=== PATIENT | female | born 1940 | race Caucasian/White ===

== ENCOUNTER → 2016-07-23 | Outpatient (CLI) | payer OTHER, MEDICAID ==
[~2016-07-23] MED LIST: ALLO100T PO; ASPI81TA27 PO; CHOL200010 PO; COLC1TAB3 PO; FER325T PO; GABA-494 PO; GLIM2TAB33 PO; HYDR-2601 PO; NIFE90TA30 PO; PERCOT PO; PIOG45TA6 PO; SIMV-8 PO; TEMA15CA PO; ZOLP10TA6 PO
[2016-07-23 11:22] LABS: Basophils # (auto) 0 uL; Basophils % (auto) 0.6 % (0.0-2.0); Eosinophils # (auto) 0 uL; Eosinophils % (auto) 0.1 % (0.0-7.0); Hematocrit 31.8 % (36.0-46.0); Hemoglobin 10.1 g/dL (12.2-16.2); Lymphocytes # (auto) 0.9 uL; Lymphocytes % (auto) 13.3 % (10.0-50.0); Mean Corpuscular Hemoglobin 28.5 pg (28.0-32.0); Mean Corpuscular Hgb Conc. 31.6 g/dL (32.0-36.0); Mean Corpuscular Volume 90.3 fL (80.0-100.0); Mean Platelet Volume 7.3 fL (7.4-10.4); Monocytes # (auto) 0.4 uL; Monocytes % (auto) 6.3 % (0.0-12.0); Neutrophils # (auto) 5.4 uL; Neutrophils % (auto) 79.7 % (37.0-80.0); Platelet Count (auto) 293 10^3/uL (140-450); Red Cell Distribution Width 16.5 % (11.6-16.0); White Blood Cell 6.7 10^3/uL (4.4-10.8)
[2016-07-23 11:25] LABS: Urine Bilirubin Negative (Negative); Urine Blood Negative /uL (Negative); Urine Color Yellow (Yellow); Urine Glucose Normal (Normal); Urine Ketone Negative (Negative); Urine Nitrite Negative (Negative); Urine RBC <1 /hpf (0 - 4); Urine Squamous Epithelial Cell FEW /hpf (<5); Urine Urobilinogen Normal (Negative); Urine pH 5.5 (5.0-8.0)
[2016-07-23 11:31] LABS: Albumin 3.2 g/dL (3.4-5.0); BUN/Creatinine Ratio 16.6; Calcium 8.8 mg/dL (8.5-10.1); Phosphorus 3.9 mg/dL (2.6-4.90); Potassium 4.3 mmol/L (3.5-5.1); Uric Acid 4.3 mg/dL (2.6-6.0)
[2016-07-23 11:34] LABS: Urine Protein/Creatinine Ratio 0.21
== END | disposition home or self-care (01) ==
LOC: LAB 10:42
PROVIDERS: ATTEND Internal Medicine Nephrology
DX: E55.9 Vitamin D deficiency, unspecified (principal); E13.22 Other specified diabetes mellitus with diabetic chronic kidney disease; R80.9 Proteinuria, unspecified; N18.4 Chronic kidney disease, stage 4 (severe); D63.1 Anemia in chronic kidney disease; E21.3 Hyperparathyroidism, unspecified; E78.5 Hyperlipidemia, unspecified; M10.9 Gout, unspecified
CPT/HCPCS: 36415; 80069; 81001; 82306; 82570; 83036; 83970; 84156; 84550; 85025

== ENCOUNTER → 2016-10-28 | Outpatient (CLI) | payer OTHER, MEDICAID ==
[2016-10-28 11:52] LABS: Basophils # (auto) 0 uL; Basophils % (auto) 0.3 % (0.0-2.0); Eosinophils # (auto) 0 uL; Eosinophils % (auto) 0.1 % (0.0-7.0); Hematocrit 31.2 % (36.0-46.0); Lymphocytes % (auto) 14.9 % (10.0-50.0); Mean Corpuscular Hemoglobin 28.5 pg (28.0-32.0); Mean Corpuscular Hgb Conc. 32.2 g/dL (32.0-36.0); Mean Corpuscular Volume 88.5 fL (80.0-100.0); Mean Platelet Volume 7.1 fL (7.4-10.4); Monocytes # (auto) 0.5 uL; Monocytes % (auto) 6.9 % (0.0-12.0); Neutrophils # (auto) 5.1 uL; Neutrophils % (auto) 77.8 % (37.0-80.0); Platelet Count (auto) 286 10^3/uL (140-450); Red Cell Distribution Width 17.7 % (11.6-16.0); White Blood Cell 6.6 10^3/uL (4.4-10.8)
[2016-10-28 14:00] LABS: BUN/Creatinine Ratio 16.1; Bilirubin, Total 0.5 mg/dL (0.2-1.0); Calcium 8.3 mg/dL (8.5-10.1); Potassium 4.4 mmol/L (3.5-5.1); Total Protein 6.9 g/dL (6.4-8.2); Uric Acid 4.4 mg/dL (2.6-6.0)
== END | disposition home or self-care (01) ==
LOC: LAB 11:12
DX: M06.9 Rheumatoid arthritis, unspecified (principal); M25.50 Pain in unspecified joint; D64.9 Anemia, unspecified; I10 Essential (primary) hypertension
CPT/HCPCS: 36415; 80053; 84550; 85025; 85652; 86141

== ENCOUNTER → 2017-01-21 | Outpatient (CLI) | payer OTHER, MEDICAID ==
[2017-01-21 12:08] LABS: Urine RBC None Seen /hpf (0 - 4)
[2017-01-21 12:14] LABS: Basophils # (auto) 0 uL; Basophils % (auto) 0.3 % (0.0-2.0); CONDITION Y; Eosinophils # (auto) 0 uL; Eosinophils % (auto) 0.1 % (0.0-7.0); Hematocrit 29.6 % (36.0-46.0); Hemoglobin 9.6 g/dL (12.2-16.2); Lymphocytes # (auto) 0.8 uL; Lymphocytes % (auto) 14.1 % (10.0-50.0); Mean Corpuscular Hemoglobin 28.8 pg (28.0-32.0); Mean Corpuscular Hgb Conc. 32.6 g/dL (32.0-36.0); Mean Corpuscular Volume 88.5 fL (80.0-100.0); Mean Platelet Volume 7.1 fL (7.4-10.4); Monocytes # (auto) 0.4 uL; Monocytes % (auto) 7.1 % (0.0-12.0); Neutrophils # (auto) 4.5 uL; Neutrophils % (auto) 78.4 % (37.0-80.0); Platelet Count (auto) 292 10^3/uL (140-450); Red Cell Distribution Width 18.8 % (11.6-16.0); White Blood Cell 5.8 10^3/uL (4.4-10.8)
[2017-01-21 12:37] LABS: Urine Protein/Creatinine Ratio 0.31
[2017-01-21 12:44] LABS: BUN/Creatinine Ratio 14.5; Calcium 8.2 mg/dL (8.5-10.1); Phosphorus 4.4 mg/dL (2.5-4.90); Potassium 4.4 mmol/L (3.5-5.1); Uric Acid 4.8 mg/dL (2.6-6.0)
[2017-01-21 13:24] LABS: Urine Bilirubin Negative (Negative); Urine Blood Negative /uL (Negative); Urine Color Yellow (Yellow); Urine Glucose Normal (Normal); Urine Ketone Negative (Negative); Urine Nitrite Negative (Negative); Urine Squamous Epithelial Cell FEW /hpf (<5); Urine Urobilinogen Normal (Negative); Urine pH 6.5 (5.0-8.0)
== END | disposition home or self-care (01) ==
LOC: LAB 11:04
PROVIDERS: ATTEND Internal Medicine Nephrology
DX: E55.9 Vitamin D deficiency, unspecified (principal); R80.9 Proteinuria, unspecified
CPT/HCPCS: 36415; 80069; 81001; 82306; 82570; 83036; 83970; 84156; 84550; 85025

== ENCOUNTER → 2017-04-21 | Outpatient (CLI) | payer OTHER, MEDICAID ==
[2017-04-21 11:24] LABS: Basophils # (auto) 0 uL; Basophils % (auto) 0.4 % (0.0-2.0); Eosinophils # (auto) 0 uL; Eosinophils % (auto) 0.1 % (0.0-7.0); Hematocrit 33.5 % (36.0-46.0); Lymphocytes # (auto) 0.9 uL; Lymphocytes % (auto) 15.6 % (10.0-50.0); Mean Corpuscular Hemoglobin 29.4 pg (28.0-32.0); Mean Corpuscular Hgb Conc. 32.7 g/dL (32.0-36.0); Mean Corpuscular Volume 89.7 fL (80.0-100.0); Mean Platelet Volume 6.9 fL (6.9-10.8); Monocytes # (auto) 0.5 uL; Monocytes % (auto) 8.2 % (0.0-12.0); Neutrophils # (auto) 4.2 uL; Neutrophils % (auto) 75.7 % (37.0-80.0); Platelet Count (auto) 256 10^3/uL (140-450); White Blood Cell 5.6 10^3/uL (4.4-10.8)
[2017-04-21 11:41] LABS: Urine Bilirubin Negative (Negative); Urine Blood Negative /uL (Negative); Urine Color Yellow (Yellow); Urine Glucose Normal (Normal); Urine Ketone Negative (Negative); Urine Nitrite Negative (Negative); Urine Urobilinogen Normal (Negative); Urine pH 5.5 (5.0-8.0)
[2017-04-21 12:09] LABS: Albumin 3.1 g/dL (3.4-5.0); BUN/Creatinine Ratio 16.7; Calcium 8.5 mg/dL (8.5-10.1); Phosphorus 3.8 mg/dL (2.5-4.90); Potassium 4.3 mmol/L (3.5-5.1); Uric Acid 4.7 mg/dL (2.6-6.0)
[2017-04-21 13:00] LABS: Urine Protein/Creatinine Ratio 0.29
== END | disposition home or self-care (01) ==
LOC: LAB 10:38
PROVIDERS: ATTEND Internal Medicine Nephrology
DX: M10.9 Gout, unspecified (principal); R80.9 Proteinuria, unspecified; E21.3 Hyperparathyroidism, unspecified; I12.9 Hypertensive chronic kidney disease with stage 1 through stage 4 chronic kidney disease, or unspecified chronic kidney disease; N18.3 Chronic kidney disease, stage 3 (moderate); D63.1 Anemia in chronic kidney disease
CPT/HCPCS: 36415; 80069; 81003; 82570; 83970; 84156; 84550; 85025

== ENCOUNTER 2017-06-05 11:42 | Emergency (ER) | payer OTHER, MEDICAID ==
[~2017-06-05] VITALS: Ht 165.1 cm; Wt 129.7 kg
[~2017-06-05 11:42] MED LIST changes: +FURO20TA3 PO
[2017-06-05 11:57] VITALS: BP 135/86
== END 2017-06-05 12:38 | disposition left against medical advice (07) ==
LOC: ER 11:42
DX: I10 Essential (primary) hypertension (principal); Z53.21 Procedure and treatment not carried out due to patient leaving prior to being seen by health care provider; Z76.0 Encounter for issue of repeat prescription

== ENCOUNTER → 2017-08-10 | Outpatient (CLI) | payer OTHER, MEDICAID ==
[~2017-08-10] MED LIST changes: +ALL100T PO; +APIX2.5T PO; +DIGO0.1220 PO; -GABA-494 PO; +GABA100C9 PO; -PIOG45TA6 PO; +PIOG45TA8 PO
[2017-08-10 11:32] LABS: Basophils # (auto) 0 uL; Basophils % (auto) 0.3 % (0.0-2.0); Eosinophils # (auto) 0 uL; Hematocrit 29.9 % (36.0-46.0); Hemoglobin 9.8 g/dL (12.2-16.2); Lymphocytes # (auto) 0.6 uL; Lymphocytes % (auto) 8.4 % (10.0-50.0); Mean Corpuscular Hemoglobin 29.6 pg (28.0-32.0); Mean Corpuscular Hgb Conc. 32.6 g/dL (32.0-36.0); Mean Corpuscular Volume 90.6 fL (80.0-100.0); Monocytes # (auto) 0.5 uL; Monocytes % (auto) 7.5 % (0.0-12.0); Neutrophils # (auto) 5.8 uL; Neutrophils % (auto) 83.8 % (37.0-80.0); Nucleated Red Blood Cells % 0.1 %; Platelet Count (auto) 218 10^3/uL (140-450); Red Cell Distribution Width 17.7 % (11.8-14.3); White Blood Cell 6.9 10^3/uL (4.4-10.8)
[2017-08-10 11:33] LABS: Urine Bacteria NONE SEEN /hpf (None Seen); Urine Blood Negative /uL (Negative); Urine WBC <1 /hpf (0 - 5)
[2017-08-10 12:00] LABS: BUN/Creatinine Ratio 16.3; Calcium 7.9 mg/dL (8.5-10.1); Phosphorus 3.8 mg/dL (2.5-4.90); Potassium 3.7 mmol/L (3.5-5.1); Uric Acid 5.3 mg/dL (2.6-6.0)
[2017-08-10 12:03] LABS: Protein, Urine 29.3 mg/dL (0.0-11.9)
== END | disposition home or self-care (01) ==
LOC: LAB 11:07
PROVIDERS: ATTEND Internal Medicine Nephrology
DX: N18.4 Chronic kidney disease, stage 4 (severe) (principal); D63.1 Anemia in chronic kidney disease; E21.3 Hyperparathyroidism, unspecified; E78.5 Hyperlipidemia, unspecified; E55.9 Vitamin D deficiency, unspecified; M10.9 Gout, unspecified; R80.9 Proteinuria, unspecified
CPT/HCPCS: 36415; 80061; 80069; 81001; 82306; 82570; 84156; 84550; 85025

== ENCOUNTER 2017-08-16 10:10 | Inpatient (IN) | payer OTHER, MEDICAID ==
[~2017-08-16] VITALS: Ht 165.1 cm; Wt 133.1 kg
[~2017-08-16 10:10] MED LIST changes: -ALL100T PO; -APIX2.5T PO; -DIGO0.1220 PO
[2017-08-16 10:53] LABS: Basophils # (auto) 0 uL; Basophils % (auto) 0.3 % (0.0-2.0); Eosinophils # (auto) 0 uL; Hematocrit 25.9 % (36.0-46.0); Hemoglobin 8.4 g/dL (12.2-16.2); Lymphocytes # (auto) 0.4 uL; Mean Corpuscular Hgb Conc. 32.5 g/dL (32.0-36.0); Monocytes # (auto) 0.5 uL; Neutrophils # (auto) 7.5 uL; Neutrophils % (auto) 89.1 % (37.0-80.0); White Blood Cell 8.4 10^3/uL (4.4-10.8)
[2017-08-16 10:55] LABS: Lymphocytes % (auto) 4.4 % (10.0-50.0); Mean Corpuscular Hemoglobin 29.4 pg (28.0-32.0); Mean Corpuscular Volume 90.2 fL (80.0-100.0); Monocytes % (auto) 6.2 % (0.0-12.0); Platelet Count (auto) 189 10^3/uL (140-450); Red Blood Cells 2.88 10^6/uL (4.0-5.20); Red Cell Distribution Width 16.9 % (11.8-14.3)
[2017-08-16] MEDS ORDERED: diphenhdrAMINE HCL 50 MG/1 ML VL IV ONE (11:30)
[2017-08-16] MEDS ORDERED: methylPREDNISolone SOD SUCC 125 MG/2 ML VL IV ONE (11:30)
[2017-08-16 11:31] LABS: Alanine Aminotransferase 13 U/L (13-56); Albumin 2.7 g/dL (3.4-5.0); Alkaline Phosphatase 103 U/L (45-117); Anion Gap 11 (5-15); Aspartate Aminotransferase 24 U/L (15-37); Bilirubin, Total 0.7 mg/dL (0.2-1.0); Blood Urea Nitrogen 53 mg/dL (7-18); Calcium 7.3 mg/dL (8.5-10.1); Carbon Dioxide 24 mmol/L (21-32); Chloride 102 mmol/L (98-107); GFR African American 24 mL/min; GFR Non-African American 20 mL/min; Glucose 97 mg/dL (74-106); Magnesium 2.1 mg/dL (1.6-2.6); Potassium 3.7 mmol/L (3.5-5.1); Sodium 137 mmol/L (136-145); Total Protein 6.6 g/dL (6.4-8.2)
[2017-08-16] MEDS ORDERED: ALBUTEROL SULF 2.5 MG/0.5ML(0.5%) NEB SOLN NEB ONE (12:15)
[2017-08-16] MEDS ORDERED: SODIUM CHLORIDE 0.9% 500 ML IV ONE (12:15)
[2017-08-16 13:35] LABS: Urine Bacteria NONE SEEN /hpf (None Seen); Urine Blood Negative /uL (Negative); Urine Hyaline Cast FEW /lpf (0 - 2); Urine Specific Gravity 1.019 (1.001-1.035); Urine WBC 1 /hpf (0 - 5)
[2017-08-16] MEDS ORDERED: MORPHINE SULFATE 4 MG/ML SYR/VIAL IV PRN ×2 (15:30)
[2017-08-16] MEDS ORDERED: cloNIDine HCL 0.1 MG TAB PO PRN (15:30)
[2017-08-16] MEDS ORDERED: SULFAMETHOX W/TRIMETH(800/160MG) DS TAB PO ONE (15:30)
[2017-08-16] MEDS ORDERED: ONDANSETRON HCL 4 MG/2 ML VIAL IV PRN (15:30)
[2017-08-16] MEDS ORDERED: DOCUSATE SOD 100 MG CAP PO PRN (15:30)
[2017-08-16] MEDS ORDERED: NITROGLYCERIN 0.4 MG SL TAB SL PRN (15:30)
[2017-08-16] MEDS ORDERED: ASPirin-EC 81 mg tab PO ONE (15:45)
[2017-08-16] MEDS ORDERED: NIFEdipine ER 30 MG TAB PO ONE (15:45)
[2017-08-16] MEDS: FUROSEMIDE 20 MG TAB PO SCH (18:28)
[2017-08-16] MEDS: FERROUS SULFATE 325 MG TAB PO SCH (18:28)
[2017-08-16] MEDS: IPRATROPIUM BROM 0.5 MG/2.5ML INH SOL NEB SCH (18:30)
[2017-08-16] MEDS: ALBUTEROL SULF 2.5 MG/0.5ML(0.5%) NEB SOLN NEB SCH (18:30)
[2017-08-16 19:16] VITALS: BP 103/59
[2017-08-16] MEDS: Boost Glucose Control 8 Ounces PO SCH (19:16)
[2017-08-16 20:20] VITALS: BP 90/49
[2017-08-16 21:56] VITALS: BP 92/48
[2017-08-16] MEDS: SULFAMETHOX W/TRIMETH(800/160MG) DS TAB PO SCH (22:36)
[2017-08-16] MEDS: SODIUM CHLOR 0.9% PF (SALINE LOCK) 10ML VIAL IV SCH (22:36)
[2017-08-16] MEDS: ATORVASTATIN 20 MG TAB PO SCH (22:37)
[2017-08-16] MEDS: FAMOTIDINE 20 MG TAB PO SCH (22:37)
[2017-08-16] MEDS: GABAPENTIN 100 MG CAP PO SCH (22:37)
[2017-08-16] MEDS: TEMAZEPAM 15 MG CAP PO PRN (22:38)
[2017-08-17] MEDS: IPRATROPIUM BROM 0.5 MG/2.5ML INH SOL NEB SCH ×3 (00:20→13:20)
[2017-08-17] MEDS: ALBUTEROL SULF 2.5 MG/0.5ML(0.5%) NEB SOLN NEB SCH ×3 (00:20→13:20)
[2017-08-17 04:59] VITALS: BP 99/52
[2017-08-17] MEDS: SODIUM CHLOR 0.9% PF (SALINE LOCK) 10ML VIAL IV SCH ×3 (06:00→22:06)
[2017-08-17] MEDS: FUROSEMIDE 20 MG TAB PO SCH (06:58)
[2017-08-17] MEDS ORDERED: GLIMEPIRIDE 2 MG TAB PO SCH (07:00)
[2017-08-17 07:11] LABS: Eosinophils # (auto) 0 uL; Lymphocytes # (auto) 0.3 uL; Mean Corpuscular Hemoglobin 29.5 pg (28.0-32.0); Monocytes # (auto) 0.1 uL; Nucleated Red Blood Cells % 0.1 %; Platelet Count (auto) 176 10^3/uL (140-450)
[2017-08-17 07:17] LABS: Basophils # (auto) 0.1 uL; Basophils % (auto) 0.7 % (0.0-2.0); Hematocrit 25.3 % (36.0-46.0); Hemoglobin 8.3 g/dL (12.2-16.2); Lymphocytes % (auto) 3.3 % (10.0-50.0); Mean Corpuscular Hgb Conc. 32.7 g/dL (32.0-36.0); Mean Corpuscular Volume 90.3 fL (80.0-100.0); Red Blood Cells 2.81 10^6/uL (4.0-5.20); Red Cell Distribution Width 17.5 % (11.8-14.3); White Blood Cell 8.4 10^3/uL (4.4-10.8)
[2017-08-17 07:20] LABS: Albumin 2.5 g/dL (3.4-5.0); BUN/Creatinine Ratio 21.4; Bilirubin, Total 0.6 mg/dL (0.2-1.0); Calcium 7.4 mg/dL (8.5-10.1); Total Protein 6.3 g/dL (6.4-8.2)
[2017-08-17] MEDS: FERROUS SULFATE 325 MG TAB PO SCH ×2 (08:00→22:00)
[2017-08-17] MEDS: Boost Glucose Control 8 Ounces PO SCH ×3 (08:00→22:05)
[2017-08-17 09:18] VITALS: BP 100/47
[2017-08-17] MEDS ORDERED: NIFEdipine ER 30 MG TAB PO SCH (10:00)
[2017-08-17] MEDS: GABAPENTIN 100 MG CAP PO SCH ×2 (10:00→22:06)
[2017-08-17] MEDS ORDERED: ASPirin-EC 81 mg tab PO SCH (10:00)
[2017-08-17] MEDS: PIOGLITAZONE HYDROCHLORIDE 30 MG TAB PO SCH (10:00)
[2017-08-17] MEDS ORDERED: COLCHICINE 0.6 MG TAB PO SCH (10:00)
[2017-08-17] MEDS: SULFAMETHOX W/TRIMETH(800/160MG) DS TAB PO SCH (10:46)
[2017-08-17] MEDS: CHOLECALCIFEROL (VITD3) 1,000 UNIT TAB PO SCH (10:48)
[2017-08-17] MEDS: ALLOPURINOL 100 MG TAB PO SCH (10:48)
[2017-08-17] MEDS: MULTIPLE VITAMIN TAB PO SCH (10:48)
[2017-08-17 13:22] VITALS: BP 104/59
[2017-08-17] MEDS ORDERED: SODIUM CHLORIDE 0.9% 1,000 ML IV ONE (14:15)
[2017-08-17] MEDS ORDERED: HYDROcodone-ACET 5/325MG TAB PO PRN (14:30)
[2017-08-17] MEDS ORDERED: ACETAMINOPHEN 325 MG TAB PO PRN (14:30)
[2017-08-17 16:57] VITALS: BP 114/54
[2017-08-17] MEDS ORDERED: ALBUTEROL SULF 2.5 MG/0.5ML(0.5%) NEB SOLN NEB PRN (18:00)
[2017-08-17] MEDS ORDERED: IPRATROPIUM BROM 0.5 MG/2.5ML INH SOL NEB PRN (18:00)
[2017-08-17] MEDS: ATORVASTATIN 20 MG TAB PO SCH (22:06)
[2017-08-17] MEDS: TEMAZEPAM 15 MG CAP PO PRN (22:06)
[2017-08-17] MEDS: FAMOTIDINE 20 MG TAB PO SCH (22:06)
[2017-08-17] MEDS: APIXABAN 2.5 MG TAB PO SCH (22:07)
[2017-08-17 22:14] VITALS: BP 105/79
[2017-08-18 05:44] VITALS: BP 111/57
[2017-08-18] MEDS: SODIUM CHLOR 0.9% PF (SALINE LOCK) 10ML VIAL IV SCH (05:56)
[2017-08-18 06:23] LABS: Basophils # (auto) 0 uL; Eosinophils # (auto) 0 uL; Lymphocytes # (auto) 0.3 uL
[2017-08-18 06:27] LABS: Basophils % (auto) 0.1 % (0.0-2.0); Hematocrit 24.8 % (36.0-46.0); Lymphocytes % (auto) 1.9 % (10.0-50.0); Mean Corpuscular Hemoglobin 29.2 pg (28.0-32.0); Mean Corpuscular Hgb Conc. 32.4 g/dL (32.0-36.0); Mean Corpuscular Volume 90.1 fL (80.0-100.0); Monocytes # (auto) 0.6 uL; Monocytes % (auto) 4.1 % (0.0-12.0); Neutrophils # (auto) 13.6 uL; Neutrophils % (auto) 93.9 % (37.0-80.0); Platelet Count (auto) 211 10^3/uL (140-450); Red Blood Cells 2.75 10^6/uL (4.0-5.20); White Blood Cell 14.5 10^3/uL (4.4-10.8)
[2017-08-18 06:40] LABS: INR 1.05 (0.9-1.15); Partial Thromboplastin Time 32.3 sec (22.64-33.71); Prothrombin Time 11.5 sec (9.37-12.3)
[2017-08-18 06:49] LABS: BUN/Creatinine Ratio 18.6; Calcium 7.7 mg/dL (8.5-10.1); Potassium 3.7 mmol/L (3.5-5.1)
[2017-08-18 08:00] VITALS: BP 126/56
[2017-08-18] MEDS: FERROUS SULFATE 325 MG TAB PO SCH (08:00)
[2017-08-18] MEDS: Boost Glucose Control 8 Ounces PO SCH (08:00)
[2017-08-18] MEDS: ALLOPURINOL 100 MG TAB PO SCH (10:00)
[2017-08-18] MEDS: PIOGLITAZONE HYDROCHLORIDE 30 MG TAB PO SCH (10:00)
[2017-08-18] MEDS ORDERED: NIFEdipine ER 30 MG TAB PO SCH (10:00)
[2017-08-18] MEDS: MULTIPLE VITAMIN TAB PO SCH (10:00)
[2017-08-18] MEDS ORDERED: LACTULOSE 20Gm/30ML SOLN PO SCH (10:00)
[2017-08-18] MEDS ORDERED: APIX2.5T PO (10:25)
[2017-08-18] MEDS ORDERED: ALL100T PO (10:25)
[2017-08-18] MEDS ORDERED: PANTOPRAZOLE 40 MG TAB PO SCH (11:00)
[2017-08-18] MEDS: APIXABAN 2.5 MG TAB PO SCH (11:24)
[2017-08-18] MEDS: CHOLECALCIFEROL (VITD3) 1,000 UNIT TAB PO SCH (11:25)
[2017-08-18 12:42] VITALS: BP 126/89
[2017-08-18] MEDS ORDERED: DIGO0.1220 PO (14:10)
[2017-08-18] MEDS ORDERED: DIGOXIN 0.25 MG TAB PO ONE (14:15)
== END 2017-08-18 16:05 | disposition home or self-care (01) | DRG 64 ==
LOC: EDBD 10:10 → ER 10:10 → TELE 10:11 → TELE-EAST 20:20
PROVIDERS: ADMIT Internal Medicine; ATTEND Internal Medicine
DX: I63.9 Cerebral infarction, unspecified (principal); N17.0 Acute kidney failure with tubular necrosis; E43 Unspecified severe protein-calorie malnutrition; E11.40 Type 2 diabetes mellitus with diabetic neuropathy, unspecified; E11.21 Type 2 diabetes mellitus with diabetic nephropathy; E11.22 Type 2 diabetes mellitus with diabetic chronic kidney disease; D68.69 Other thrombophilia; I95.9 Hypotension, unspecified; I48.92 Unspecified atrial flutter; N18.4 Chronic kidney disease, stage 4 (severe); I13.0 Hypertensive heart and chronic kidney disease with heart failure and stage 1 through stage 4 chronic kidney disease, or unspecified chronic kidney disease; Z68.42 Body mass index [BMI] 45.0-49.9, adult; I50.32 Chronic diastolic (congestive) heart failure; I48.2 Chronic atrial fibrillation; E11.51 Type 2 diabetes mellitus with diabetic peripheral angiopathy without gangrene; Z88.5 Allergy status to narcotic agent; Z88.0 Allergy status to penicillin; E66.01 Morbid (severe) obesity due to excess calories; J44.9 Chronic obstructive pulmonary disease, unspecified; K57.30 Diverticulosis of large intestine without perforation or abscess without bleeding; M10.9 Gout, unspecified; F17.210 Nicotine dependence, cigarettes, uncomplicated; E83.51 Hypocalcemia; D63.8 Anemia in other chronic diseases classified elsewhere; I87.8 Other specified disorders of veins; R29.6 Repeated falls; Z79.01 Long term (current) use of anticoagulants; Z79.899 Other long term (current) drug therapy; Z82.49 Family history of ischemic heart disease and other diseases of the circulatory system; Z83.3 Family history of diabetes mellitus; Z82.61 Family history of arthritis; Z90.49 Acquired absence of other specified parts of digestive tract; Z90.710 Acquired absence of both cervix and uterus; Z88.1 Allergy status to other antibiotic agents
CPT/HCPCS: 36415; 51702; 70450; 71045; 74176; 76775; 80048; 80053; 81001; 82962; 83036; 83605; 83735; 83880; 84443; 84484; 85025; 85610; 85730; 86850; 86900; 86901; 87040; 87086; 92610; 93005; 93886; 94640; 96361; 96374; 97163

== ENCOUNTER → 2017-08-20 | Outpatient (CLI) | payer OTHER, MEDICAID ==
[~2017-08-20] MED LIST changes: +ALL100T PO; -ALLO100T PO; +APIX2.5T PO; -ASPI81TA27 PO; -COLC1TAB3 PO; +DIGO0.1220 PO; -FER325T PO; -FURO20TA3 PO; -GABA100C9 PO; -GLIM2TAB33 PO; -HYDR-2601 PO; -NIFE90TA30 PO; -PERCOT PO; -TEMA15CA PO; -ZOLP10TA6 PO
[2017-08-20 12:50] LABS: BUN/Creatinine Ratio 18.7; Calcium 7.9 mg/dL (8.5-10.1); Potassium 3.9 mmol/L (3.5-5.1)
== END | disposition home or self-care (01) ==
LOC: LAB 11:28
PROVIDERS: ATTEND Internal Medicine
DX: E11.22 Type 2 diabetes mellitus with diabetic chronic kidney disease (principal); N17.9 Acute kidney failure, unspecified; N18.3 Chronic kidney disease, stage 3 (moderate); I48.91 Unspecified atrial fibrillation; I63.9 Cerebral infarction, unspecified
CPT/HCPCS: 36415; 80048

== ENCOUNTER → 2017-08-31 | Outpatient (CLI) | payer OTHER, MEDICAID ==
[2017-08-31 12:06] LABS: Albumin 2.8 g/dL (3.4-5.0); BUN/Creatinine Ratio 14.1; Bilirubin, Total 0.8 mg/dL (0.2-1.0); Calcium 7.1 mg/dL (8.5-10.1); Phosphorus 3.1 mg/dL (2.5-4.90); Potassium 3.7 mmol/L (3.5-5.1); Total Protein 6.6 g/dL (6.4-8.2)
== END | disposition home or self-care (01) ==
LOC: LAB 11:16
PROVIDERS: ATTEND Internal Medicine Nephrology
DX: N18.4 Chronic kidney disease, stage 4 (severe) (principal); R17 Unspecified jaundice
CPT/HCPCS: 36415; 80053; 80069

== ENCOUNTER → 2017-09-07 | Outpatient (CLI) | payer OTHER, MEDICAID ==
[2017-09-07 13:15] LABS: Albumin 2.3 g/dL (3.4-5.0); BUN/Creatinine Ratio 13.9; Calcium 7.4 mg/dL (8.5-10.1); Phosphorus 3.1 mg/dL (2.5-4.90); Potassium 4.6 mmol/L (3.5-5.1)
== END | disposition home or self-care (01) ==
LOC: LAB 11:42
PROVIDERS: ATTEND Internal Medicine Nephrology
DX: N18.4 Chronic kidney disease, stage 4 (severe) (principal)
CPT/HCPCS: 36415; 80069

== ENCOUNTER → 2017-09-14 | Outpatient (CLI) | payer OTHER, MEDICAID ==
[2017-09-14 13:51] LABS: Albumin 2.6 g/dL (3.4-5.0); BUN/Creatinine Ratio 17.8; Phosphorus 3.3 mg/dL (2.5-4.90); Potassium 4.1 mmol/L (3.5-5.1)
== END | disposition home or self-care (01) ==
LOC: LAB 11:50
PROVIDERS: ATTEND Internal Medicine
DX: E11.22 Type 2 diabetes mellitus with diabetic chronic kidney disease (principal); N18.4 Chronic kidney disease, stage 4 (severe)
CPT/HCPCS: 36415; 80069

== ENCOUNTER → 2017-10-16 | Outpatient (CLI) | payer OTHER, MEDICAID ==
[~2017-10-16] MED LIST changes: +ALBUTEROL SULF 2.5 MG/0.5ML(0.5%) NEB SOLN ONE
== END | disposition home or self-care (01) ==
LOC: RT 08:32
PROVIDERS: ATTEND Internal Medicine Pulmonary Disease
DX: J44.9 Chronic obstructive pulmonary disease, unspecified (principal)
CPT/HCPCS: 94060; 94640

== ENCOUNTER 2017-12-08 09:00 | Inpatient (IN) | payer OTHER, MEDICAID ==
[2017-12-08] VITALS (9 sets, daily range): BP systolic 111–152; BP diastolic 57–76
[~2017-12-08] VITALS: Ht 167.6 cm; Wt 125.7 kg
[~2017-12-08 09:00] MED LIST changes: -ALBUTEROL SULF 2.5 MG/0.5ML(0.5%) NEB SOLN ONE; -ALL100T PO; +ALLO100T PO; +ASPI81TA27 PO; -CHOL200010 PO; -DIGO0.1220 PO; +DOXE50CA57 PO; +FURO40TA4 PO; +TRIA0.25 PO; +UMEC1AER IN
[2017-12-08 10:50] LABS: Basophils # (auto) 0 uL; Basophils % (auto) 0.5 % (0.0-2.0); Eosinophils # (auto) 0 uL; Lymphocytes # (auto) 0.6 uL; Monocytes # (auto) 0.5 uL; Monocytes % (auto) 7.6 % (0.0-12.0)
[2017-12-08 10:52] LABS: Lymphocytes % (auto) 9.4 % (10.0-50.0); Mean Corpuscular Hemoglobin 28.1 pg (28.0-32.0); Mean Corpuscular Hgb Conc. 31.4 g/dL (32.0-36.0); Mean Corpuscular Volume 89.5 fL (80.0-100.0); Neutrophils # (auto) 5.2 uL; Neutrophils % (auto) 82.5 % (37.0-80.0); Platelet Count (auto) 239 10^3/uL (140-450); Red Blood Cells 2.13 10^6/uL (4.0-5.20); Red Cell Distribution Width 19.8 % (11.8-14.3); White Blood Cell 6.3 10^3/uL (4.4-10.8)
[2017-12-08] MEDS ORDERED: FUROSEMIDE 40 MG/4 ML VIAL IV ONE (11:00)
[2017-12-08 11:04] LABS: Alanine Aminotransferase 9 U/L (13-56); Albumin 2.7 g/dL (3.4-5.0); Alkaline Phosphatase 83 U/L (45-117); Anion Gap 9 (5-15); Aspartate Aminotransferase 13 U/L (15-37); BUN/Creatinine Ratio 15.9; Bilirubin, Total 0.5 mg/dL (0.2-1.0); Blood Urea Nitrogen 39 mg/dL (7-18); Carbon Dioxide 22 mmol/L (21-32); Chloride 110 mmol/L (98-107); GFR African American 25 mL/min; GFR Non-African American 20 mL/min; Glucose 98 mg/dL (74-106); Magnesium 2.5 mg/dL (1.6-2.6); Potassium 4.3 mmol/L (3.5-5.1); Sodium 141 mmol/L (136-145); Total Protein 6.5 g/dL (6.4-8.2)
[2017-12-08] MEDS ORDERED: PANTOPRAZOLE 40 MG/10 ML VIAL IV ONE (13:00)
[2017-12-08] MEDS ORDERED: DEXTROSE (50%) 50ML SYRG IV PRN (13:00)
[2017-12-08] MEDS ORDERED: PROMETHAZINE HCL 25 MG/ML 1ML IV PRN (13:00)
[2017-12-08] MEDS ORDERED: NITROGLYCERIN 0.4 MG SL TAB SL PRN (13:00)
[2017-12-08] MEDS ORDERED: MORPHINE SULFATE 8mg/ml INJ SDV IV PRN ×3 (13:00)
[2017-12-08] MEDS ORDERED: LORazepam 0.5 MG TAB PO PRN (13:00)
[2017-12-08] MEDS ORDERED: LACTULOSE 20Gm/30ML SOLN PO PRN (13:00)
[2017-12-08 13:46] LABS: INR 1.07 (0.9-1.15); Partial Thromboplastin Time 39.4 sec (23.78-33.04); Prothrombin Time 11.4 sec (9.27-12.13)
[2017-12-08] MEDS ORDERED: ALBUTEROL SULF 2.5 MG/0.5ML(0.5%) NEB SOLN NEB PRN (15:15)
[2017-12-08] MEDS ORDERED: CLOPIDOGREL BISULFATE 75 MG TAB PO ONE (15:15)
[2017-12-08] MEDS: cefTRIAXone 1GM/10ml IVPUSH 10 ML IV SCH (15:15)
[2017-12-08] MEDS ORDERED: methylPREDNISolone SOD SUCC 40 MG/ML VL IV ONE (15:15)
[2017-12-08] MEDS: CLINDAMYCIN 600MG IV 50 ML IV SCH (16:00)
[2017-12-08] MEDS: InsuLIN REG 1unit/0.01ml Soln (100units/ml) SC SCH ×2 (17:00→22:00)
[2017-12-08] MEDS: ACCU-CHEK COMFORT CURVE STRIP VI SCH ×2 (17:06→22:01)
[2017-12-08] MEDS: ALBUTEROL SULF 2.5 MG/0.5ML(0.5%) NEB SOLN NEB SCH ×2 (18:00→22:07)
[2017-12-08] MEDS: IPRATROPIUM BROM 0.5 MG/2.5ML INH SOL NEB SCH ×2 (18:00→22:07)
[2017-12-08] MEDS ORDERED: TRIAZOLAM PO SCH (18:00)
[2017-12-08] MEDS ORDERED: DOXEPIN HCL 50 MG PO SCH (22:00)
[2017-12-08] MEDS: DOXEPIN HCL 25 MG CAPSULE PO SCH (22:00)
[2017-12-08] MEDS: PRAVASTATIN SODIUM 20 MG TAB PO SCH (22:01)
[2017-12-08] MEDS: APIXABAN 2.5 MG TAB PO SCH (22:01)
[2017-12-08] MEDS: TEMAZEPAM 15 MG CAP PO PRN (22:01)
[2017-12-08 22:32] LABS: Hemoglobin 7.7 g/dL (12.2-16.2)
[2017-12-09] VITALS (13 sets, daily range): BP systolic 100–138; BP diastolic 52–77
[2017-12-09] MEDS: ALBUTEROL SULF 2.5 MG/0.5ML(0.5%) NEB SOLN NEB SCH ×4 (00:25→18:55)
[2017-12-09] MEDS: IPRATROPIUM BROM 0.5 MG/2.5ML INH SOL NEB SCH ×4 (00:25→18:55)
[2017-12-09] MEDS: CLINDAMYCIN 600MG IV 50 ML IV SCH ×2 (00:34→08:00)
[2017-12-09] MEDS ORDERED: methylPREDNISolone SOD SUCC 40 MG/ML VL IV SCH (04:00)
[2017-12-09 05:29] LABS: Basophils # (auto) 0 uL; Basophils % (auto) 0.2 % (0.0-2.0); Eosinophils # (auto) 0 uL; Lymphocytes # (auto) 0.2 uL; Lymphocytes % (auto) 3.4 % (10.0-50.0); Monocytes # (auto) 0 uL; Monocytes % (auto) 0.4 % (0.0-12.0)
[2017-12-09 05:31] LABS: Hematocrit 28.3 % (36.0-46.0); Hemoglobin 8.7 g/dL (12.2-16.2); Mean Corpuscular Hemoglobin 28.7 pg (28.0-32.0); Mean Corpuscular Hgb Conc. 30.9 g/dL (32.0-36.0); Mean Corpuscular Volume 92.9 fL (80.0-100.0); Neutrophils # (auto) 6.8 uL; Platelet Count (auto) 231 10^3/uL (140-450); Red Blood Cells 3.04 10^6/uL (4.0-5.20); White Blood Cell 7.1 10^3/uL (4.4-10.8)
[2017-12-09 05:48] LABS: Albumin 2.7 g/dL (3.4-5.0); BUN/Creatinine Ratio 16.4; Bilirubin, Total 0.5 mg/dL (0.2-1.0); Calcium 8.1 mg/dL (8.5-10.1); Potassium 4.5 mmol/L (3.5-5.1); Total Protein 6.5 g/dL (6.4-8.2)
[2017-12-09] MEDS: InsuLIN REG 1unit/0.01ml Soln (100units/ml) SC SCH ×4 (07:00→22:00)
[2017-12-09] MEDS: ACCU-CHEK COMFORT CURVE STRIP VI SCH ×4 (07:07→22:03)
[2017-12-09] MEDS ORDERED: PATIENTS OWN MEDICATION (Simvastatin 20 MG) PO SCH (10:00)
[2017-12-09] MEDS ORDERED: UMECLIDINIUM VILANTEROL IN SCH (10:00)
[2017-12-09] MEDS ORDERED: ASPirin-EC 81 mg tab PO SCH (10:00)
[2017-12-09] MEDS ORDERED: PANTOPRAZOLE 40 MG TAB PO SCH (10:00)
[2017-12-09] MEDS: cefTRIAXone 1GM/10ml IVPUSH 10 ML IV SCH (10:51)
[2017-12-09] MEDS: FUROSEMIDE 40 MG/4 ML VIAL IV SCH (10:52)
[2017-12-09] MEDS: ALLOPURINOL 100 MG TAB PO SCH (10:53)
[2017-12-09] MEDS: CLOPIDOGREL BISULFATE 75 MG TAB PO SCH (10:53)
[2017-12-09] MEDS: APIXABAN 2.5 MG TAB PO SCH (10:53)
[2017-12-09] MEDS ORDERED: BUDESONIDE (INHALATION) 0.5 MG/2 ML NEB NEB ONE (11:30)
[2017-12-09] MEDS ORDERED: PANTOPRAZOLE 40 MG TAB PO ONE (11:30)
[2017-12-09 12:19] LABS: Urine Bacteria FEW /hpf (None Seen); Urine Blood 2+ /uL (Negative); Urine Mucus FEW (None Seen); Urine Specific Gravity 1.009 (1.001-1.035); Urine WBC 12 /hpf (0 - 5)
[2017-12-09] MEDS: BUDESONIDE (INHALATION) 0.5 MG/2 ML NEB NEB SCH (18:55)
[2017-12-09] MEDS: DOXEPIN HCL 25 MG CAPSULE PO SCH (22:00)
[2017-12-09] MEDS: PANTOPRAZOLE 40 MG TAB PO SCH (22:03)
[2017-12-09] MEDS: PRAVASTATIN SODIUM 20 MG TAB PO SCH (22:03)
[2017-12-09] MEDS: TEMAZEPAM 15 MG CAP PO PRN (23:19)
[2017-12-10 05:23] VITALS: BP 146/74
[2017-12-10] MEDS: InsuLIN REG 1unit/0.01ml Soln (100units/ml) SC SCH ×4 (06:30→21:39)
[2017-12-10] MEDS: ACCU-CHEK COMFORT CURVE STRIP VI SCH ×4 (06:30→21:33)
[2017-12-10] MEDS: IPRATROPIUM BROM 0.5 MG/2.5ML INH SOL NEB SCH ×4 (06:56→18:00)
[2017-12-10] MEDS: ALBUTEROL SULF 2.5 MG/0.5ML(0.5%) NEB SOLN NEB SCH ×4 (06:56→18:00)
[2017-12-10] MEDS: BUDESONIDE (INHALATION) 0.5 MG/2 ML NEB NEB SCH ×2 (07:04→22:00)
[2017-12-10 07:05] LABS: Basophils # (auto) 0 uL; Basophils % (auto) 0.4 % (0.0-2.0); Eosinophils # (auto) 0 uL; Hematocrit 26.8 % (36.0-46.0); Hemoglobin 8.7 g/dL (12.2-16.2); Lymphocytes # (auto) 0.3 uL; Lymphocytes % (auto) 3.6 % (10.0-50.0); Mean Corpuscular Hgb Conc. 32.5 g/dL (32.0-36.0); Mean Corpuscular Volume 89.3 fL (80.0-100.0); Monocytes # (auto) 0.4 uL; Monocytes % (auto) 4.5 % (0.0-12.0); Neutrophils # (auto) 8.6 uL; Neutrophils % (auto) 91.5 % (37.0-80.0); Platelet Count (auto) 216 10^3/uL (140-450); Red Blood Cells 3.01 10^6/uL (4.0-5.20); Red Cell Distribution Width 18.2 % (11.8-14.3); White Blood Cell 9.4 10^3/uL (4.4-10.8)
[2017-12-10 07:22] LABS: Potassium 4.6 mmol/L (3.5-5.1)
[2017-12-10 07:34] LABS: BUN/Creatinine Ratio 17.8; Calcium 8.1 mg/dL (8.5-10.1)
[2017-12-10 08:00] VITALS: BP 119/59
[2017-12-10 09:00] VITALS: BP 91/58
[2017-12-10] MEDS: PANTOPRAZOLE 40 MG TAB PO SCH ×2 (09:53→21:32)
[2017-12-10] MEDS: CLOPIDOGREL BISULFATE 75 MG TAB PO SCH (09:53)
[2017-12-10] MEDS: ALLOPURINOL 100 MG TAB PO SCH (09:54)
[2017-12-10] MEDS: FUROSEMIDE 40 MG/4 ML VIAL IV SCH (09:57)
[2017-12-10 13:00] VITALS: BP 123/67
[2017-12-10 18:28] VITALS: BP 135/51
[2017-12-10] MEDS: TEMAZEPAM 15 MG CAP PO PRN (21:32)
[2017-12-10] MEDS: DOXEPIN HCL 25 MG CAPSULE PO SCH (21:33)
[2017-12-10] MEDS: PRAVASTATIN SODIUM 20 MG TAB PO SCH (21:33)
[2017-12-10 22:00] VITALS: BP 120/60
[2017-12-11] MEDS: IPRATROPIUM BROM 0.5 MG/2.5ML INH SOL NEB SCH ×3 (01:32→12:37)
[2017-12-11] MEDS: ALBUTEROL SULF 2.5 MG/0.5ML(0.5%) NEB SOLN NEB SCH ×3 (01:32→12:37)
[2017-12-11 05:00] VITALS: BP 128/70
[2017-12-11] MEDS: ACCU-CHEK COMFORT CURVE STRIP VI SCH ×2 (06:20→11:34)
[2017-12-11] MEDS: InsuLIN REG 1unit/0.01ml Soln (100units/ml) SC SCH ×2 (06:20→11:30)
[2017-12-11 07:14] LABS: Basophils # (auto) 0 uL; Basophils % (auto) 0.2 % (0.0-2.0); Eosinophils # (auto) 0 uL; Hemoglobin 9.3 g/dL (12.2-16.2); Lymphocytes # (auto) 0.6 uL; Lymphocytes % (auto) 7.3 % (10.0-50.0); Mean Corpuscular Hemoglobin 28.6 pg (28.0-32.0); Mean Corpuscular Volume 89.2 fL (80.0-100.0); Monocytes # (auto) 0.5 uL; Monocytes % (auto) 6.3 % (0.0-12.0); Neutrophils # (auto) 7.4 uL; Neutrophils % (auto) 86.2 % (37.0-80.0); Nucleated Red Blood Cells % 0.1 %; Platelet Count (auto) 207 10^3/uL (140-450); Red Blood Cells 3.26 10^6/uL (4.0-5.20); Red Cell Distribution Width 17.9 % (11.8-14.3); White Blood Cell 8.6 10^3/uL (4.4-10.8)
[2017-12-11] MEDS: BUDESONIDE (INHALATION) 0.5 MG/2 ML NEB NEB SCH (07:20)
[2017-12-11 07:31] LABS: Potassium 4.1 mmol/L (3.5-5.1)
[2017-12-11 07:41] LABS: BUN/Creatinine Ratio 20.6; Calcium 8.4 mg/dL (8.5-10.1)
[2017-12-11 09:00] VITALS: BP 126/55
[2017-12-11] MEDS ORDERED: FUROSEMIDE 40 MG TAB PO SCH (10:00)
[2017-12-11] MEDS: ALLOPURINOL 100 MG TAB PO SCH (10:09)
[2017-12-11] MEDS: CLOPIDOGREL BISULFATE 75 MG TAB PO SCH (10:09)
[2017-12-11] MEDS: PANTOPRAZOLE 40 MG TAB PO SCH (10:10)
[2017-12-11 13:39] VITALS: BP 125/78
== END 2017-12-11 16:06 | disposition home or self-care (01) | DRG 291 ==
LOC: ER 09:00 → EDBD 09:00 → TELE 13:39 → TELE-CENTR 12-09 08:35 → CENTRAL 12-09 11:27
PROVIDERS: ADMIT Internal Medicine; ATTEND Internal Medicine
PROC: 30233N1 Transfusion of Nonautologous Red Blood Cells into Peripheral Vein, Percutaneous Approach (ICD-10-PCS; principal; 2017-12-09)
DX: I13.0 Hypertensive heart and chronic kidney disease with heart failure and stage 1 through stage 4 chronic kidney disease, or unspecified chronic kidney disease (principal); I50.33 Acute on chronic diastolic (congestive) heart failure; J96.00 Acute respiratory failure, unspecified whether with hypoxia or hypercapnia; J44.1 Chronic obstructive pulmonary disease with (acute) exacerbation; I31.3 Pericardial effusion (noninflammatory); E11.22 Type 2 diabetes mellitus with diabetic chronic kidney disease; E66.01 Morbid (severe) obesity due to excess calories; K57.90 Diverticulosis of intestine, part unspecified, without perforation or abscess without bleeding; W19.XXXA Unspecified fall, initial encounter; N28.1 Cyst of kidney, acquired; I48.91 Unspecified atrial fibrillation; D63.8 Anemia in other chronic diseases classified elsewhere; M10.9 Gout, unspecified; F17.210 Nicotine dependence, cigarettes, uncomplicated; N18.3 Chronic kidney disease, stage 3 (moderate); I25.10 Atherosclerotic heart disease of native coronary artery without angina pectoris; Z83.3 Family history of diabetes mellitus; Z82.61 Family history of arthritis; Z90.710 Acquired absence of both cervix and uterus; Z91.81 History of falling; Z95.5 Presence of coronary angioplasty implant and graft; Z82.49 Family history of ischemic heart disease and other diseases of the circulatory system; Y93.89 Activity, other specified; Y92.89 Other specified places as the place of occurrence of the external cause; Y99.8 Other external cause status; Z90.49 Acquired absence of other specified parts of digestive tract; Z90.89 Acquired absence of other organs; Z82.3 Family history of stroke; Z88.8 Allergy status to other drugs, medicaments and biological substances; Z88.0 Allergy status to penicillin; Z88.1 Allergy status to other antibiotic agents; Z88.6 Allergy status to analgesic agent
CPT/HCPCS: 36415; 36430; 71045; 74176; 76775; 80048; 80053; 81001; 82378; 82550; 82962; 83036; 83735; 83880; 84443; 84484; 85014; 85018; 85025; 85045; 85610; 85730; 86850; 86900; 86901; 86920; 87081; 93005; 93970; 94640; 96374; 96375; 97116; 97163; 97530; C9113; J3490

== ENCOUNTER → 2018-05-06 | Outpatient (CLI) | payer OTHER, MEDICAID ==
[2018-05-06 11:31] LABS: Basophils # (auto) 0 uL; Basophils % (auto) 0.2 % (0.0-2.0); Eosinophils # (auto) 0 uL; Hematocrit 35.5 % (36.0-46.0); Hemoglobin 11.5 g/dL (12.2-16.2); Lymphocytes # (auto) 0.9 uL; Lymphocytes % (auto) 11.6 % (10.0-50.0); Mean Corpuscular Hemoglobin 27.1 pg (28.0-32.0); Mean Corpuscular Hgb Conc. 32.4 g/dL (32.0-36.0); Mean Corpuscular Volume 83.6 fL (80.0-100.0); Monocytes # (auto) 0.6 uL; Monocytes % (auto) 7.7 % (0.0-12.0); Neutrophils # (auto) 6.5 uL; Neutrophils % (auto) 80.5 % (37.0-80.0); Nucleated Red Blood Cells % 0.1 %; Platelet Count (auto) 298 10^3/uL (140-450); Red Blood Cells 4.25 10^6/uL (4.0-5.20); Red Cell Distribution Width 18.5 % (11.8-14.3); White Blood Cell 8.1 10^3/uL (4.4-10.8)
[2018-05-06 11:45] LABS: Urine Bacteria NONE SEEN /hpf (None Seen); Urine Blood Negative /uL (Negative); Urine Hyaline Cast FEW /lpf (0 - 2); Urine Specific Gravity 1.009 (1.001-1.035); Urine WBC 1 /hpf (0 - 5)
[2018-05-06 12:00] LABS: Potassium 3.6 mmol/L (3.5-5.1)
[2018-05-06 12:07] LABS: Albumin 2.7 g/dL (3.4-5.0); BUN/Creatinine Ratio 11.2; Calcium 7.7 mg/dL (8.5-10.1); Phosphorus 4.3 mg/dL (2.5-4.90); Uric Acid 13.5 mg/dL (2.6-6.0)
== END | disposition home or self-care (01) ==
LOC: LAB 10:30
PROVIDERS: ATTEND Internal Medicine Nephrology
DX: E55.9 Vitamin D deficiency, unspecified (principal); R80.9 Proteinuria, unspecified
CPT/HCPCS: 36415; 80061; 80069; 81001; 82306; 82570; 83036; 83970; 84156; 84550; 85025

== ENCOUNTER → 2018-08-31 | Outpatient (CLI) | payer OTHER, MEDICAID ==
[2018-08-31 13:03] LABS: Basophils # (auto) 0 uL; Basophils % (auto) 0.3 % (0.0-2.0); Eosinophils # (auto) 0 uL; Lymphocytes % (auto) 11.3 % (10.0-50.0); Mean Corpuscular Hemoglobin 27.8 pg (28.0-32.0); Mean Corpuscular Hgb Conc. 33.2 g/dL (32.0-36.0); Mean Corpuscular Volume 83.7 fL (80.0-100.0); Monocytes # (auto) 0.6 uL; Monocytes % (auto) 7.3 % (0.0-12.0); Neutrophils % (auto) 81.1 % (37.0-80.0); Platelet Count (auto) 274 10^3/uL (140-450); Red Cell Distribution Width 16.4 % (11.8-14.3); White Blood Cell 8.6 10^3/uL (4.4-10.8)
[2018-08-31 13:06] LABS: Urine Blood Negative /uL (Negative); Urine Specific Gravity 1.007 (1.001-1.035)
[2018-08-31 13:34] LABS: Creatinine, Urine 24 mg/dL (30.0-125.0); Protein, Urine 8.8 mg/dL (0.0-11.9)
[2018-08-31 14:05] LABS: Albumin 3.2 g/dL (3.4-5.0); Calcium 8.1 mg/dL (8.5-10.1); Potassium 3.6 mmol/L (3.5-5.1)
[2018-08-31 14:10] LABS: BUN/Creatinine Ratio 13.8; Phosphorus 3.3 mg/dL (2.5-4.90); Uric Acid 11.3 mg/dL (2.6-6.0)
== END | disposition home or self-care (01) ==
LOC: LAB 12:04
PROVIDERS: ATTEND Internal Medicine Nephrology
CPT/HCPCS: 36415; 80061; 80069; 81003; 82306; 82570; 83970; 84156; 84550; 85025

== ENCOUNTER → 2019-01-11 | Outpatient (CLI) | payer MEDICARE ==
[2019-01-11 12:15] LABS: Basophils # (auto) 0 uL; Basophils % (auto) 0.3 % (0.0-2.0); Eosinophils # (auto) 0 uL; Lymphocytes # (auto) 0.9 uL; Neutrophils # (auto) 7.9 uL; Neutrophils % (auto) 83.3 % (37.0-80.0)
[2019-01-11 12:20] LABS: Eosinophils % (auto) 0.1 % (0.0-7.0); Hematocrit 35.2 % (36.0-46.0); Hemoglobin 11.2 g/dL (12.2-16.2); Lymphocytes % (auto) 9.8 % (10.0-50.0); Mean Corpuscular Hemoglobin 26.3 pg (28.0-32.0); Mean Corpuscular Volume 82.4 fL (80.0-100.0); Monocytes # (auto) 0.6 uL; Monocytes % (auto) 6.5 % (0.0-12.0); Platelet Count (auto) 306 10^3/uL (140-450); Red Blood Cells 4.27 10^6/uL (4.0-5.20); Red Cell Distribution Width 19.1 % (11.8-14.3); White Blood Cell 9.4 10^3/uL (4.4-10.8)
[2019-01-11 12:29] LABS: Urine Blood Negative /uL (Negative); Urine Specific Gravity 1.009 (1.001-1.035)
[2019-01-11 13:15] LABS: Albumin 3.1 g/dL (3.4-5.0); BUN/Creatinine Ratio 22.3; Calcium 8.7 mg/dL (8.5-10.1); Phosphorus 3.5 mg/dL (2.5-4.90); Potassium 3.7 mmol/L (3.5-5.1)
[2019-01-11 13:24] LABS: Creatinine, Urine 35 mg/dL (30.0-125.0); Protein, Urine 9.8 mg/dL (0.0-11.9)
== END | disposition home or self-care (01) ==
LOC: LAB 10:46
PROVIDERS: ATTEND Internal Medicine Nephrology
DX: I13.0 Hypertensive heart and chronic kidney disease with heart failure and stage 1 through stage 4 chronic kidney disease, or unspecified chronic kidney disease (principal); D63.1 Anemia in chronic kidney disease; N18.3 Chronic kidney disease, stage 3 (moderate); M10.9 Gout, unspecified; E21.3 Hyperparathyroidism, unspecified; N39.0 Urinary tract infection, site not specified; R80.9 Proteinuria, unspecified
CPT/HCPCS: 36415; 80069; 81003; 82306; 82570; 84156; 84550; 85025

== ENCOUNTER → 2019-05-10 | Outpatient (CLI) | payer MEDICARE ==
[~2019-05-10] MED LIST changes: +ASPI-404 PO; -ASPI81TA27 PO; +PIOG45TA11 PO; -PIOG45TA8 PO
[2019-05-10 11:12] LABS: Basophils # (auto) 0.1 uL; Eosinophils # (auto) 0 uL; Eosinophils % (auto) 0.1 % (0.0-7.0); Mean Corpuscular Volume 83.6 fL (80.0-100.0); Monocytes # (auto) 0.9 uL; Urine Blood Negative /uL (Negative)
[2019-05-10 11:17] LABS: Basophils % (auto) 0.7 % (0.0-2.0); Hematocrit 37.5 % (36.0-46.0); Hemoglobin 11.7 g/dL (12.2-16.2); Lymphocytes # (auto) 1.1 uL; Lymphocytes % (auto) 9.5 % (10.0-50.0); Mean Corpuscular Hemoglobin 26.1 pg (28.0-32.0); Mean Corpuscular Hgb Conc. 31.2 g/dL (32.0-36.0); Monocytes % (auto) 7.5 % (0.0-12.0); Neutrophils # (auto) 9.7 uL; Neutrophils % (auto) 82.2 % (37.0-80.0); Platelet Count (auto) 307 10^3/uL (140-450); Red Blood Cells 4.49 10^6/uL (4.0-5.20); Red Cell Distribution Width 19.3 % (11.8-14.3); White Blood Cell 11.7 10^3/uL (4.4-10.8)
[2019-05-10 12:25] LABS: Potassium 3.6 mmol/L (3.5-5.1)
[2019-05-10 12:43] LABS: Albumin 2.9 g/dL (3.4-5.0); BUN/Creatinine Ratio 19.9; Calcium 7.8 mg/dL (8.5-10.1); Phosphorus 3.7 mg/dL (2.5-4.90); Uric Acid 7.9 mg/dL (2.6-6.0)
[2019-05-10 12:45] LABS: Creatinine, Urine 73 mg/dL (30.0-125.0); Protein, Urine 10.7 mg/dL (0.0-11.9)
== END | disposition home or self-care (01) ==
LOC: LAB 10:51
PROVIDERS: ATTEND Internal Medicine Nephrology
DX: E55.9 Vitamin D deficiency, unspecified (principal); R80.9 Proteinuria, unspecified; M10.9 Gout, unspecified; N39.0 Urinary tract infection, site not specified; E21.3 Hyperparathyroidism, unspecified; I13.0 Hypertensive heart and chronic kidney disease with heart failure and stage 1 through stage 4 chronic kidney disease, or unspecified chronic kidney disease; D63.1 Anemia in chronic kidney disease; N18.3 Chronic kidney disease, stage 3 (moderate)
CPT/HCPCS: 36415; 80069; 81003; 82306; 82570; 83970; 84156; 84550; 85025

== ENCOUNTER → 2020-03-14 | Outpatient (CLI) | payer OTHER ==
[~2020-03-14] MED LIST changes: -ASPI-404 PO; +ASPI-543 PO
[2020-03-14 12:22] LABS: Basophils # (auto) 0.1 10 ^3/uL (0-0.2); Eosinophils # (auto) 0 10 ^3/uL (0-0.8); Hemoglobin 12.2 g/dL (12.2-16.2); Nucleated Red Blood Cells % 0.1 %
[2020-03-14 12:23] LABS: Basophils % (auto) 0.6 % (0.0-2.0); Hematocrit 37.9 % (36.0-46.0); Lymphocytes # (auto) 1.1 10 ^3/uL (0.4-5.4); Lymphocytes % (auto) 10.1 % (10.0-50.0); Mean Corpuscular Hemoglobin 26.5 pg (28.0-32.0); Mean Corpuscular Hgb Conc. 32.2 g/dL (32.0-36.0); Mean Corpuscular Volume 82.3 fL (80.0-100.0); Monocytes # (auto) 0.8 10 ^3/uL (0-1.3); Monocytes % (auto) 7.2 % (0.0-12.0); Neutrophils # (auto) 8.8 10 ^3/uL (1.6-8.6); Neutrophils % (auto) 82.1 % (37.0-80.0); Platelet Count (auto) 312 10^3/uL (140-450); Red Blood Cells 4.61 10^6/uL (4.0-5.20); Red Cell Distribution Width 19.8 % (11.8-14.3); Urine Blood Negative /uL (Negative); White Blood Cell 10.8 10^3/uL (4.4-10.8)
[2020-03-14 12:48] LABS: Creatinine, Urine 68 mg/dL (30.0-125.0); Protein, Urine 19.5 mg/dL (0.0-11.9)
== END | disposition home or self-care (01) ==
LOC: LAB 11:58
PROVIDERS: ATTEND Internal Medicine Nephrology
DX: E55.9 Vitamin D deficiency, unspecified (principal); R80.9 Proteinuria, unspecified
CPT/HCPCS: 36415; 80069; 81003; 82306; 82570; 83970; 84156; 84550; 85025

== ENCOUNTER → 2020-04-10 | Outpatient (CLI) | payer OTHER | END | disposition home or self-care (01) | LOC: XY 15:55 | PROVIDERS: ATTEND Podiatrist | DX: M71.22 Synovial cyst of popliteal space [Baker], left knee (principal) | CPT/HCPCS: 93925 ==

== ENCOUNTER → 2020-05-15 | Outpatient (CLI) | payer OTHER ==
[2020-05-15 12:09] LABS: Basophils # (auto) 0.1 10 ^3/uL (0-0.2); Eosinophils # (auto) 0 10 ^3/uL (0-0.8); Hematocrit 39.1 % (36.0-46.0); Monocytes # (auto) 0.9 10 ^3/uL (0-1.3)
[2020-05-15 12:10] LABS: Basophils % (auto) 0.6 % (0.0-2.0); Hemoglobin 12.5 g/dL (12.2-16.2); Lymphocytes # (auto) 1.2 10 ^3/uL (0.4-5.4); Lymphocytes % (auto) 9.8 % (10.0-50.0); Mean Corpuscular Hemoglobin 27.2 pg (28.0-32.0); Mean Corpuscular Volume 84.7 fL (80.0-100.0); Monocytes % (auto) 7.3 % (0.0-12.0); Neutrophils # (auto) 10.1 10 ^3/uL (1.6-8.6); Neutrophils % (auto) 82.3 % (37.0-80.0); Nucleated Red Blood Cells % 0.2 %; Platelet Count (auto) 304 10^3/uL (140-450); Red Blood Cells 4.62 10^6/uL (4.0-5.20); White Blood Cell 12.2 10^3/uL (4.4-10.8)
[2020-05-15 12:32] LABS: Albumin 2.2 g/dL (3.4-5.0); BUN/Creatinine Ratio 13.5; Phosphorus 3.8 mg/dL (2.5-4.90); Uric Acid 8.3 mg/dL (2.6-6.0)
[2020-05-15 12:52] LABS: Calcium 5.9 mg/dL (8.5-10.1); Potassium 2.9 mmol/L (3.5-5.1)
[2020-05-18 14:17] LABS: Urine Blood Negative /uL (Negative); Urine Specific Gravity 1.015 (1.001-1.035)
[2020-05-18 14:26] LABS: Creatinine, Urine 111 mg/dL (30.0-125.0); Protein, Urine 44.1 mg/dL (0.0-11.9)
== END | disposition home or self-care (01) ==
LOC: LAB 11:45
PROVIDERS: ATTEND Internal Medicine Nephrology
DX: N18.30 Chronic kidney disease, stage 3 unspecified (principal); D63.1 Anemia in chronic kidney disease; E56.9 Vitamin deficiency, unspecified; R80.9 Proteinuria, unspecified; R19.7 Diarrhea, unspecified; M10.9 Gout, unspecified; N39.0 Urinary tract infection, site not specified; E21.3 Hyperparathyroidism, unspecified
CPT/HCPCS: 36415; 80069; 81003; 82270; 82306; 82570; 83970; 84156; 84550; 85025; 85048

== ENCOUNTER → 2020-06-05 | Outpatient (CLI) | payer OTHER | END | disposition home or self-care (01) | LOC: LAB 14:56 | PROVIDERS: ATTEND Internal Medicine Gastroenterology | DX: R19.7 Diarrhea, unspecified (principal) | CPT/HCPCS: 87493 ==